=== PATIENT | female | born 1955 | race Caucasian/White ===

== ENCOUNTER 2025-04-10 09:35 | Outpatient (CLI) | payer MEDICARE, MEDICAID ==
--- NOTE | 2025-04-10 11:46 | RADIOLOGY REPORT ---
CLINICAL HISTORY: UNSPECIFIED SEQUELAE OF UNSPECIFIED CEREBROVASCULAR DISEASE TECHNIQUE: MRI of the brain was performed with and without gadolinium. 15 ml of clariscan was administered intravenously. COMPARISON: None FINDINGS: There is no abnormal restricted diffusion to suggest acute infarction. There is mild right volume loss. Scattered and confluent T2 hyperintense signal abnormality within the white matter of both cerebral hemispheres and bones are most compatible with a moderate burden of nonspecific chronic small vessel ischemic change. There is no evidence for acute ischemic changes, mass, mass effect, or extra- axial fluid collection. There is no hydrocephalus or midline shift. The cerebral sulci and subarachnoid cisterns are not effaced. The imaged paranasal sinuses are clear. There has been bilateral cataract extraction. The midline structures, including the corpus callosum, are unremarkable. The intracranial flow voids are maintained. There is no abnormal post contrast enhancement. IMPRESSION: No acute intracranial abnormality seen. No evidence for acute infarct. Mild brain volume loss. Moderate chronic small vessel ischemic change. Bilateral cataract extraction.
--- NOTE | 2025-04-10 12:41 | RADIOLOGY REPORT ---
ULTRASOUND SOFT TISSUE HEAD AND NECK CLINICAL INDICATION: NON TOXIC GOITER TECHNIQUE: Multiple real time sonographic images of the thyroid were obtained. COMPARISON: Prior exam dated none FINDINGS: The right thyroid gland measures 3.0 x 1.2 x 1.4 cm. The left thyroid gland measures approximately 1.7 x 0.6 x 1.2 cm. The isthmus measures 0.2 cm. The thyroid gland is diffusely heterogeneous. There is a 1.3 cm right TI-RADS 4 nodule. Left thyroid gland appears atrophic. IMPRESSION: A 1.3 cm right TI-RADS 4 nodule. Thyroid gland is diffusely heterogeneous. Left thyroid gland appears atrophic. Recommend follow-up thyroid ultrasound in 1 year. [employer] TI-RADS Categories and Recommendations (2017): TR1: 0 points, Benign, No FNA TR2: 2 points, Not suspicious, No FNA TR3: 3 points, Mildly suspicious, FNA if > or = 2.5 cm, Follow if > or = 1.5 cm TR4: 4-6 points, Moderately Suspicious, FNA if > or = 1.5 cm, Follow if > or = 1.0 cm TR5: 7+ points, Highly Suspicious, FNA if > or = 1.0 cm, Follow if > or = 0.5 cm Follow-up ultrasound guidelines: TR5: yearly for 5 years, if no growth or change in TI-RADS level TR4: at 1, 2, 3 and 5 years, if no growth or change in TI-RADS level TR3: at 1, 3 and 5 years, if no growth or change in TI-RADS level If increased but below threshold for FNA, repeat in one year. Source: ACR Thyroid Imaging, Reporting and Data System (TI-RADS): White Paper of the ACR TI-RADS Committee. Praneeth et al., J Am [employer]ell Radiol 2017;14:587-595.
[2025-04-10] MEDS ORDERED: GADOTERATE MEGLUMINE 7.5 MMOL/15 ML VIAL IV ONE (21:37)
== END 2025-04-10 23:59 | disposition home or self-care (01) ==
LOC: MRI 09:35
PROVIDERS: ATTEND Nurse Practitioner
DX: I67.89 Other cerebrovascular disease (principal); H26.9 Unspecified cataract; I69.90 Unspecified sequelae of unspecified cerebrovascular disease; E04.2 Nontoxic multinodular goiter; E04.1 Nontoxic single thyroid nodule
CPT/HCPCS: 70553; A9575